=== PATIENT | male | born 1960 | race Caucasian/White ===

== ENCOUNTER 2017-03-22 06:01 | Emergency (ER) | payer MEDICARE, OTHER ==
[~2017-03-22] VITALS: Ht 170.2 cm; Wt 83.0 kg
[~2017-03-22 06:01] MED LIST: ALLO100T PO; CLOP75TA16 PO; DOCU-138 PO; FERR-63 PO; GABA-531 PO; LIP40 PO; METF10002 PO; PANT40TA4 PO; QUIN20TA30 PO; TRAM50TA94 PO; VIAG50 PO
[2017-03-22] MEDS ORDERED: ONDANSETRON HCL 4MG/2ML VIAL IV STA (07:34)
[2017-03-22] MEDS ORDERED: MORPHINE SULFATE 4 MG/ML CPJ (NOT FOR IM USE) IV STA (07:34)
[2017-03-22] MEDS ORDERED: SODIUM CHLORIDE 0.9% 1,000 ML IV ONE (07:34)
[2017-03-22 07:50] LABS: BASOPHILS % 0.6 % (0.0-2.0); EOSINOPHILS % 2.7 % (0.0-5.0); HEMATOCRIT. 36.7 % (42.0-52.0); HEMOGLOBIN. 12.9 g/dL (14.0-18.0); LYMPHOCYTES % 19.9 % (20.0-50.0); MEAN CORPUSCULAR HEMOGLOBIN 31.3 pg (28.0-32.0); MEAN CORPUSCULAR VOLUME 89.1 fL (80.0-94.0); MEAN PLATELET VOLUME 7.3 fl (7.4-10.4); MONOCYTES % 12.1 % (2.0-8.0); NEUTROPHILS % 64.7 % (40.0-76.0); PLATELET 64 x1000/uL (130-400); RED BLOOD CELL COUNT 4.11 mill/uL (4.7-6.1)
[2017-03-22 08:04] LABS: CARBON DIOXIDE 25 mEq/L (21-32); CHLORIDE 106 mEq/L (98-107); ETHANOL BLOOD < 10 mg/dL
[2017-03-22 08:37] LABS: CLARITY URINE CLEAR (CLEAR); COLOR URINE DARK YELLOW (YELLOW); KETONES URINE NEGATIVE (NEGATIVE); LEUKOCYTE ESTERASE URINE NEGATIVE (NEGATIVE); NITRITE URINE NEGATIVE (NEGATIVE); OCCULT BLOOD URINE NEGATIVE (NEGATIVE); PROTEIN URINE NEGATIVE (NEGATIVE); SPECIFIC GRAVITY URINE 1.024 (1.005-1.030)
[2017-03-22] MEDS ORDERED: IOHEXOL-300 100 ML BOTTLE ONE (09:57)
[2017-03-22] MEDS ORDERED: ONDANSETRON HCL 4MG/2ML VIAL IV ONE (11:00)
[2017-03-22] MEDS ORDERED: MORPHINE SULFATE 4 MG/ML CPJ (NOT FOR IM USE) IV ONE (11:00)
[2017-03-22 11:47] VITALS: BP 146/116
== END 2017-03-22 12:25 | disposition home or self-care (01) ==
LOC: ER 06:01
DX: R10.84 Generalized abdominal pain (principal); R51 Headache; R19.7 Diarrhea, unspecified; R11.2 Nausea with vomiting, unspecified; K21.9 Gastro-esophageal reflux disease without esophagitis; I10 Essential (primary) hypertension; E78.00 Pure hypercholesterolemia, unspecified; E11.9 Type 2 diabetes mellitus without complications; Z86.73 Personal history of transient ischemic attack (TIA), and cerebral infarction without residual deficits; Z79.01 Long term (current) use of anticoagulants
CPT/HCPCS: 36415; 74177; 76705; 80053; 81003; 83690; 85025; 96361; 96374; 96375; 96376; 99285; G0482; J2270; J2405; Q9967; J7030

== ENCOUNTER 2018-09-22 01:39 | Emergency (ER) | payer MEDICARE, OTHER ==
[~2018-09-22] VITALS: Ht 165.1 cm; Wt 84.0 kg
[~2018-09-22 01:39] MED LIST changes: -CLOP75TA16 PO; +CLOP75TA4 PO; +METF-416 PO; -METF10002 PO
[2018-09-22 02:49] LABS: HEMOGLOBIN. 12.9 g/dL (14.0-18.0); RED CELL DISTRIBUTION WIDTH 16.8 % (11.6-14.6)
[2018-09-22 02:53] LABS: CHLORIDE 109 mEq/L (98-107)
[2018-09-22 03:06] LABS: EOSINOPHILS % 3.5 % (0.0-5.0); HEMATOCRIT. 34.9 % (42.0-52.0); LYMPHOCYTES % 20.1 % (20.0-50.0); MEAN CORPUSCULAR HEMOGLOBIN 33.5 pg (28.0-32.0); MEAN CORPUSCULAR VOLUME 91.1 fL (80.0-94.0); MEAN PLATELET VOLUME 7.8 fl (7.4-10.4); MONOCYTES % 13.4 % (2.0-8.0); PLATELET 76 x1000/uL (130-400); RED BLOOD CELL COUNT 3.84 mill/uL (4.7-6.1)
[2018-09-22] MEDS ORDERED: ASPIRIN 81MG TABLET PO SCH (03:30)
[2018-09-22] MEDS: MORPHINE SULFATE 4 MG/ML CPJ (NOT FOR IM USE) IV SCH ×2 (03:56→04:53)
[2018-09-22 07:46] VITALS: BP 132/88
== END 2018-09-22 08:00 | disposition short-term general hospital (02) ==
LOC: ER 01:39 → CANBEDREQ 07:06 → ER 08:00
DX: R07.89 Other chest pain (principal); R06.02 Shortness of breath; E11.9 Type 2 diabetes mellitus without complications; E78.00 Pure hypercholesterolemia, unspecified; I10 Essential (primary) hypertension; Z86.73 Personal history of transient ischemic attack (TIA), and cerebral infarction without residual deficits; Z98.890 Other specified postprocedural states; Z79.899 Other long term (current) drug therapy
CPT/HCPCS: 36415; 71045; 80053; 82962; 83880; 84484; 85025; 93005; 96374; 99285; J2270

== ENCOUNTER 2019-02-23 00:51 | Inpatient (IN) | payer MEDICARE, OTHER ==
[~2019-02-23] VITALS: Ht 167.6 cm; Wt 78.9 kg
[~2019-02-23 00:51] MED LIST changes: +METO25TA6 MT
[2019-02-23] MEDS ORDERED: ASPIRIN 81MG TABLET PO ONE (01:30)
[2019-02-23] MEDS: NITROGLYCERIN 0.4MG TABLET SL SL PRN ×2 (01:57→02:09)
[2019-02-23 02:11] LABS: BASOPHILS % 0.7 % (0.0-2.0); EOSINOPHILS % 4.3 % (0.0-5.0); HEMATOCRIT. 36.7 % (42.0-52.0); HEMOGLOBIN. 13.3 g/dL (14.0-18.0); LYMPHOCYTES % 23.9 % (20.0-50.0); MEAN CORPUSCULAR HEMOGLOBIN 33.7 pg (28.0-32.0); MEAN CORPUSCULAR VOLUME 92.6 fL (80.0-94.0); MEAN PLATELET VOLUME 7.9 fl (7.4-10.4); MONOCYTES % 13.1 % (2.0-8.0); PLATELET 78 x1000/uL (130-400); RED BLOOD CELL COUNT 3.96 mill/uL (4.7-6.1); RED CELL DISTRIBUTION WIDTH 13.5 % (11.6-14.6)
[2019-02-23 02:13] LABS: CHLORIDE 108 mEq/L (98-107)
[2019-02-23] MEDS ORDERED: INSULIN REGULAR (HUMULIN R) 300UNITS/3ML IV SCH (03:00)
[2019-02-23] MEDS ORDERED: CALCIUM CHLORIDE 1GM/10ML SYR IV SCH (03:00)
[2019-02-23] MEDS ORDERED: DEXTROSE 50% WATER 50ML SYRINGE IV SCH (03:00)
[2019-02-23] MEDS ORDERED: SODIUM BICARBONATE 8.4% 1 MEQ/ML 50ML SYR IV SCH (03:00)
[2019-02-23] MEDS ORDERED: ZOLPIDEM TARTRATE 5MG TABLET PO PRN (08:15)
[2019-02-23] MEDS ORDERED: ENOXAPARIN 40MG/0.4ML SYR SUBCUT SCH ×2 (08:15→10:00)
[2019-02-23] MEDS ORDERED: NITROGLYCERIN 0.4MG TABLET SL SL PRN (08:15)
[2019-02-23] MEDS ORDERED: MAGNESIUM/ALUMINUM HYDROXIDE/SIMETHICONE 30ML UDC PO PRN (08:15)
[2019-02-23] MEDS ORDERED: ONDANSETRON HCL 4MG/2ML INJ IV PRN (08:15)
[2019-02-23] MEDS ORDERED: IPRATROPIUM/ALBUTEROL 0.5-3(2.5)MG/3ML NEB NEB PRN (08:15)
[2019-02-23] MEDS ORDERED: ACETAMINOPHEN 325MG TABLET PO PRN (08:15)
[2019-02-23] MEDS ORDERED: DEXTROSE 50% WATER 50ML SYRINGE IV PRN (08:15)
[2019-02-23] MEDS ORDERED: GUAIFENESIN 200MG/10ML SUGAR FREE UDC PO PRN (08:15)
[2019-02-23] MEDS ORDERED: CLONIDINE 0.1MG TABLET PO PRN (08:15)
[2019-02-23] MEDS ORDERED: DOCUSATE SODIUM 100MG CAPSULE PO PRN (08:15)
[2019-02-23] MEDS ORDERED: TRAMADOL 50MG TABLET PO PRN (08:15)
[2019-02-23] MEDS ORDERED: FAMOTIDINE 20MG TABLET PO SCH (10:00)
[2019-02-23] MEDS ORDERED: CLOPIDOGREL 75MG TABLET PO SCH (10:00)
[2019-02-23 11:00] VITALS: BP 120/87
[2019-02-23] MEDS: BLOOD SUGAR DIAGNOSTIC STRIP TEST SCH ×3 (12:10→21:57)
[2019-02-23] MEDS: INSULIN LISPRO 100 UNITS/ML SUBCUT SCH ×3 (12:40→21:00)
[2019-02-23 14:12] LABS: T4 FREE 1.26 ng/dL (0.76-1.46)
[2019-02-23] MEDS ORDERED: METO-539 PO (15:19)
[2019-02-23] MEDS ORDERED: METF-414 PO (15:19)
[2019-02-23] MEDS ORDERED: LACT10SO6 PO (15:24)
[2019-02-23] MEDS ORDERED: METO-293 MT (15:24)
[2019-02-23] MEDS ORDERED: TRAZ-251 MT (15:24)
[2019-02-23] MEDS ORDERED: OXYC-662 MT (15:24)
[2019-02-23 15:36] LABS: CREATINE KINASE 74 IU/L (39-308)
[2019-02-23 15:37] LABS: CREATINE KINASE MB FRACTION < 1.0 ng/mL (0.5-3.6)
[2019-02-23 16:00] VITALS: BP 125/83
[2019-02-23] MEDS: LACTULOSE 20G/30ML UDC PO SCH ×2 (16:59→22:00)
[2019-02-23] MEDS: PANTOPRAZOLE SODIUM 40 MG/VIAL IV SCH (16:59)
[2019-02-23] MEDS: DOCUSATE SODIUM 250MG CAPSULE PO SCH (17:00)
[2019-02-23 20:00] VITALS: BP 115/80
[2019-02-24] VITALS: BP 127/70
[2019-02-24 00:40] LABS: CREATINE KINASE 71 IU/L (39-308)
[2019-02-24 00:41] LABS: CREATINE KINASE MB FRACTION < 1.0 ng/mL (0.5-3.6)
[2019-02-24 04:00] VITALS: BP 127/79
[2019-02-24] MEDS: BLOOD SUGAR DIAGNOSTIC STRIP TEST SCH ×4 (06:54→21:00)
[2019-02-24] MEDS: LACTULOSE 20G/30ML UDC PO SCH ×3 (06:54→21:01)
[2019-02-24] MEDS: INSULIN LISPRO 100 UNITS/ML SUBCUT SCH ×4 (06:57→21:00)
[2019-02-24 07:11] LABS: CHLORIDE 110 mEq/L (98-107)
[2019-02-24 07:57] LABS: BASOPHILS % 0.9 % (0.0-2.0); EOSINOPHILS % 4.2 % (0.0-5.0); HEMATOCRIT. 33.5 % (42.0-52.0); HEMOGLOBIN. 12.2 g/dL (14.0-18.0); LYMPHOCYTES % 27.4 % (20.0-50.0); MEAN CORPUSCULAR HEMOGLOBIN 33.7 pg (28.0-32.0); MEAN CORPUSCULAR VOLUME 92.6 fL (80.0-94.0); MEAN PLATELET VOLUME 8.1 fl (7.4-10.4); MONOCYTES % 13.1 % (2.0-8.0); NEUTROPHILS % 54.4 % (40.0-76.0); PLATELET 65 x1000/uL (130-400); RED BLOOD CELL COUNT 3.62 mill/uL (4.7-6.1); RED CELL DISTRIBUTION WIDTH 13.6 % (11.6-14.6)
[2019-02-24 08:00] VITALS: BP 131/88
[2019-02-24] MEDS: PANTOPRAZOLE SODIUM 40 MG/VIAL IV SCH (08:45)
[2019-02-24] MEDS: DOCUSATE SODIUM 250MG CAPSULE PO SCH ×2 (08:45→17:00)
[2019-02-24 12:00] VITALS: BP 122/78
[2019-02-24 16:00] VITALS: BP 109/77
[2019-02-24 20:00] VITALS: BP 126/69
[2019-02-24] MEDS: DILTIAZEM HCL 30MG TABLET PO SCH (21:26)
[2019-02-25] VITALS: BP 97/59
[2019-02-25 04:00] VITALS: BP 105/63
[2019-02-25] MEDS: DILTIAZEM HCL 30MG TABLET PO SCH ×3 (05:46→11:50)
[2019-02-25] MEDS: LACTULOSE 20G/30ML UDC PO SCH (06:00)
[2019-02-25] MEDS: BLOOD SUGAR DIAGNOSTIC STRIP TEST SCH ×2 (06:20→11:23)
[2019-02-25] MEDS: INSULIN LISPRO 100 UNITS/ML SUBCUT SCH ×2 (06:20→11:50)
[2019-02-25 07:40] LABS: CHLORIDE 109 mEq/L (98-107)
[2019-02-25 08:00] VITALS: BP 117/79
[2019-02-25 08:46] LABS: HEMOGLOBIN. 12.1 g/dL (14.0-18.0); MEAN CORPUSCULAR HEMOGLOBIN 33.7 pg (28.0-32.0); MEAN CORPUSCULAR VOLUME 92.2 fL (80.0-94.0); RED BLOOD CELL COUNT 3.58 mill/uL (4.7-6.1); RED CELL DISTRIBUTION WIDTH 13.7 % (11.6-14.6)
[2019-02-25 08:50] LABS: MEAN PLATELET VOLUME 8.2 fl (7.4-10.4); PLATELET 68 x1000/uL (130-400)
[2019-02-25] MEDS: DOCUSATE SODIUM 250MG CAPSULE PO SCH (08:55)
[2019-02-25] MEDS: PANTOPRAZOLE SODIUM 40 MG/VIAL IV SCH (08:55)
[2019-02-25 11:01] VITALS: BP 119/75
[2019-02-25 11:43] VITALS: BP 119/75
[2019-02-25 15:19] LABS: PLATELET ESTIMATE DECREASED
== END 2019-02-25 12:18 | disposition home or self-care (01) | DRG 392 ==
LOC: ER 00:51 → 8WST 03:03 → ENRESERV 07:19 → SUPCPDRO 08:04
PROVIDERS: ADMIT Internal Medicine; ATTEND Internal Medicine
DX: K29.70 Gastritis, unspecified, without bleeding (principal); I69.354 Hemiplegia and hemiparesis following cerebral infarction affecting left non-dominant side; D63.8 Anemia in other chronic diseases classified elsewhere; K74.60 Unspecified cirrhosis of liver; I25.10 Atherosclerotic heart disease of native coronary artery without angina pectoris; E78.00 Pure hypercholesterolemia, unspecified; E11.9 Type 2 diabetes mellitus without complications; M10.9 Gout, unspecified; E66.9 Obesity, unspecified; E87.5 Hyperkalemia; I86.8 Varicose veins of other specified sites; E78.5 Hyperlipidemia, unspecified; I10 Essential (primary) hypertension; K76.0 Fatty (change of) liver, not elsewhere classified; Z79.4 Long term (current) use of insulin; Z82.49 Family history of ischemic heart disease and other diseases of the circulatory system; Z87.11 Personal history of peptic ulcer disease; Z79.899 Other long term (current) drug therapy; Z68.28 Body mass index [BMI] 28.0-28.9, adult
CPT/HCPCS: 36415; 71045; 80061; 82140; 82270; 82550; 82553; 82962; 83036; 83880; 84439; 84443; 84484; 85379; 93005; 93306; 93970; 96374; 96375; 99285; C9113; J1815; J3490

== ENCOUNTER 2019-06-15 20:07 | Inpatient (IN) | payer MEDICARE, OTHER ==
[~2019-06-15] VITALS: Ht 165.1 cm; Wt 81.2 kg
[~2019-06-15 20:07] MED LIST changes: -CLOP75TA4 PO; -DOCU-138 PO; -FERR-63 PO; -GABA-531 PO; +LACT10SO6 PO; -LIP40 PO; +METF-414 PO; -METF-416 PO; +METO-293 MT; +METO-539 PO; -METO25TA6 MT; +OXYC-662 MT; -TRAM50TA94 PO; +TRAZ-251 MT; -VIAG50 PO
[2019-06-15] MEDS ORDERED: MORPHINE SULFATE 4 MG/ML CPJ (NOT FOR IM USE) IV STA (20:39)
[2019-06-15] MEDS ORDERED: ONDANSETRON HCL 4MG/2ML INJ IV STA (20:39)
[2019-06-15] MEDS ORDERED: ASPIRIN 81MG TABLET PO ONE (20:45)
[2019-06-15] MEDS ORDERED: NITROGLYCERIN OINT 1GM/INCH UDPKT TD ONE (20:45)
[2019-06-15 21:34] LABS: CHLORIDE 105 mEq/L (98-107)
[2019-06-15 21:38] LABS: ETHANOL BLOOD < 10 mg/dL
[2019-06-15 21:54] LABS: BASOPHILS % 0.5 % (0.0-2.0); EOSINOPHILS % 2.7 % (0.0-5.0); HEMATOCRIT. 36.3 % (42.0-52.0); HEMOGLOBIN. 13.1 g/dL (14.0-18.0); LYMPHOCYTES % 21.5 % (20.0-50.0); MEAN CORPUSCULAR VOLUME 91.8 fL (80.0-94.0); MEAN PLATELET VOLUME 8.3 fl (7.4-10.4); MONOCYTES % 13.3 % (2.0-8.0); PLATELET 72 x1000/uL (130-400); RED BLOOD CELL COUNT 3.96 mill/uL (4.7-6.1); RED CELL DISTRIBUTION WIDTH 14.3 % (11.6-14.6)
[2019-06-15 22:43] LABS: *AMPHETAMINES SCREEN URINE NEGATIVE (NEGATIVE); *BARBITURATES SCREEN URINE NEGATIVE (NEGATIVE); *BENZODIAZEPINES SCREEN URINE NEGATIVE (NEGATIVE)
[2019-06-15 22:44] LABS: *COCAINE SCREEN URINE NEGATIVE (NEGATIVE); CANNABINOID URINE SCREEN NEGATIVE (NEGATIVE); METHADONE URINE SCREEN NEGATIVE (NEGATIVE); OPIATES URINE SCREEN NEGATIVE (NEGATIVE); PHENCYCLIDINE URINE SCREEN NEGATIVE (NEGATIVE)
[2019-06-16] MEDS: MORPHINE SULFATE 2 MG/ML CPJ (NOT FOR IM USE) IV PRN ×3 (04:49→16:46)
[2019-06-16] MEDS ORDERED: ACETAMINOPHEN 325MG TABLET PO PRN (08:45)
[2019-06-16] MEDS ORDERED: ONDANSETRON HCL 4MG/2ML INJ IV PRN (08:45)
[2019-06-16] MEDS ORDERED: DEXTROSE 50% WATER 50ML SYRINGE IV PRN (08:45)
[2019-06-16 09:00] VITALS: BP 100/65
[2019-06-16] MEDS: BLOOD SUGAR DIAGNOSTIC STRIP TEST SCH ×4 (09:35→21:16)
[2019-06-16] MEDS: ASPIRIN 81MG TABLET PO SCH (10:13)
[2019-06-16] MEDS: INSULIN LISPRO 100 UNITS/ML SUBCUT SCH ×3 (13:01→21:20)
[2019-06-16 16:00] VITALS: BP 103/67
[2019-06-16 20:00] VITALS: BP 114/75
[2019-06-17] VITALS: BP 104/63
[2019-06-17 04:00] VITALS: BP 119/85
[2019-06-17] MEDS: BLOOD SUGAR DIAGNOSTIC STRIP TEST SCH ×2 (07:40→13:24)
[2019-06-17 08:00] VITALS: BP 103/69
[2019-06-17] MEDS ORDERED: REGADENOSON 0.4 MG/5 ML IV ONE ×2 (08:00→10:01)
[2019-06-17 08:01] LABS: HEMATOCRIT. 30.5 % (42.0-52.0); HEMOGLOBIN. 11.2 g/dL (14.0-18.0); MEAN CORPUSCULAR HEMOGLOBIN 33.5 pg (28.0-32.0); MEAN CORPUSCULAR VOLUME 91.6 fL (80.0-94.0); MEAN PLATELET VOLUME 8.4 fl (7.4-10.4); PLATELET 55 x1000/uL (130-400); RED BLOOD CELL COUNT 3.33 mill/uL (4.7-6.1); RED CELL DISTRIBUTION WIDTH 14.4 % (11.6-14.6)
[2019-06-17] MEDS: INSULIN LISPRO 100 UNITS/ML SUBCUT SCH ×2 (08:10→13:45)
[2019-06-17] MEDS: ASPIRIN 81MG TABLET PO SCH (09:00)
[2019-06-17 12:00] VITALS: BP 101/62
[2019-06-17 12:27] LABS: T4 FREE 1.62 ng/dL (0.76-1.46)
[2019-06-17 13:53] LABS: CHLORIDE 105 mEq/L (98-107)
[2019-06-17 14:57] LABS: CREATINE KINASE 55 IU/L (39-308)
[2019-06-17 14:59] LABS: CREATINE KINASE MB FRACTION < 1.0 ng/mL (0.5-3.6)
[2019-06-17 15:23] VITALS: BP 101/62
[2019-06-17 16:00] VITALS: BP 103/68
[2019-06-17 16:33] LABS: PLATELET ESTIMATE DECREASED
[2019-06-17] MEDS ORDERED: FUROSEMIDE 20MG/2ML VIAL IVP ONE (17:30)
[2019-06-17] MEDS ORDERED: LACTULOSE 20G/30ML UDC PO ONE (17:30)
== END 2019-06-17 17:34 | disposition home or self-care (01) | DRG 440 ==
LOC: ER 20:07 → 7WST 21:16 → EDBEDREQTM 21:18 → EDBEDREQ 21:18 → ENRESERV 06-16 07:28
PROVIDERS: ADMIT Internal Medicine; ATTEND Internal Medicine
DX: K85.90 Acute pancreatitis without necrosis or infection, unspecified (principal); E11.9 Type 2 diabetes mellitus without complications; E78.5 Hyperlipidemia, unspecified; I10 Essential (primary) hypertension; K74.60 Unspecified cirrhosis of liver; Z86.73 Personal history of transient ischemic attack (TIA), and cerebral infarction without residual deficits; E78.00 Pure hypercholesterolemia, unspecified; Z82.49 Family history of ischemic heart disease and other diseases of the circulatory system
CPT/HCPCS: 36415; 71045; 76700; 78452; 80048; 80053; 80061; 80305; 80320; 82550; 82553; 82962; 83036; 83880; 84439; 84443; 84484; 85025; 85379; 93005; 93017; 93306; 93970; 99291; A9500; J1815; J2270; J2405; J2785; G0480

== ENCOUNTER 2019-08-13 08:36 | Emergency (ER) | payer MEDICARE, OTHER ==
[~2019-08-13] VITALS: Ht 162.6 cm; Wt 75.0 kg
[~2019-08-13 08:36] MED LIST changes: -METO-539 PO
[2019-08-13 09:39] LABS: BASOPHILS % 0.6 % (0.0-2.0); CHLORIDE 109 mEq/L (98-107); EOSINOPHILS % 4.3 % (0.0-5.0); HEMATOCRIT. 35.1 % (42.0-52.0); HEMOGLOBIN. 12.7 g/dL (14.0-18.0); INR 1.2; LYMPHOCYTES % 21.3 % (20.0-50.0); MEAN CORPUSCULAR HEMOGLOBIN 32.2 pg (28.0-32.0); MEAN CORPUSCULAR VOLUME 88.9 fL (80.0-94.0); MEAN PLATELET VOLUME 7.5 fl (7.4-10.4); MONOCYTES % 13.1 % (2.0-8.0); NEUTROPHILS % 60.7 % (40.0-76.0); PLATELET 93 x1000/uL (130-400); PROTHROMBIN TIME 13.4 sec (9.6-11.0); RED BLOOD CELL COUNT 3.95 mill/uL (4.7-6.1); RED CELL DISTRIBUTION WIDTH 14.5 % (11.6-14.6)
[2019-08-13 09:56] LABS: CLARITY URINE CLEAR (CLEAR); COLOR URINE YELLOW (YELLOW); KETONES URINE NEGATIVE (NEGATIVE); LEUKOCYTE ESTERASE URINE NEGATIVE (NEGATIVE); NITRITE URINE NEGATIVE (NEGATIVE); OCCULT BLOOD URINE NEGATIVE (NEGATIVE); PH URINE 5.5 (4.5-8.0); PROTEIN URINE NEGATIVE (NEGATIVE); SPECIFIC GRAVITY URINE 1.008 (1.005-1.030); UROBILINOGEN URINE 0.2 E.U./dL (0.2-1.0)
[2019-08-13 12:30] VITALS: BP 131/85
== END 2019-08-13 12:35 | disposition home or self-care (01) ==
LOC: ER 08:36
DX: R04.0 Epistaxis (principal); E11.9 Type 2 diabetes mellitus without complications; I10 Essential (primary) hypertension; K21.9 Gastro-esophageal reflux disease without esophagitis; E78.00 Pure hypercholesterolemia, unspecified; M10.9 Gout, unspecified; K74.60 Unspecified cirrhosis of liver; Z86.73 Personal history of transient ischemic attack (TIA), and cerebral infarction without residual deficits
CPT/HCPCS: 36415; 71045; 80053; 81003; 85025; 86850; 86900; 99284

== ENCOUNTER 2020-01-23 12:14 | Inpatient (IN) | payer MEDICARE, OTHER ==
[~2020-01-23] VITALS: Ht 165.1 cm; Wt 75.8 kg
[2020-01-23 14:12] LABS: CLARITY URINE CLEAR (CLEAR); COLOR URINE YELLOW (YELLOW); KETONES URINE NEGATIVE (NEGATIVE); LEUKOCYTE ESTERASE URINE NEGATIVE (NEGATIVE); NITRITE URINE NEGATIVE (NEGATIVE); OCCULT BLOOD URINE NEGATIVE (NEGATIVE); PROTEIN URINE NEGATIVE (NEGATIVE); SPECIFIC GRAVITY URINE 1.013 (1.005-1.030); UROBILINOGEN URINE 0.2 E.U./dL (0.2-1.0)
[2020-01-23 14:13] LABS: HEMOGLOBIN. 11.1 g/dL (14.0-18.0); MEAN CORPUSCULAR HEMOGLOBIN 31.2 pg (28.0-32.0); PLATELET 56 x1000/uL (130-400); RED BLOOD CELL COUNT 3.55 mill/uL (4.7-6.1); RED CELL DISTRIBUTION WIDTH 20.3 % (11.6-14.6)
[2020-01-23 14:21] LABS: CHLORIDE 111 mEq/L (98-107)
[2020-01-23 14:26] LABS: ETHANOL BLOOD < 10 mg/dL
[2020-01-23 14:40] LABS: *AMPHETAMINES SCREEN URINE NEGATIVE (NEGATIVE); *BARBITURATES SCREEN URINE NEGATIVE (NEGATIVE); *BENZODIAZEPINES SCREEN URINE NEGATIVE (NEGATIVE); *COCAINE SCREEN URINE NEGATIVE (NEGATIVE); METHADONE URINE SCREEN NEGATIVE (NEGATIVE); OPIATES URINE SCREEN NEGATIVE (NEGATIVE)
[2020-01-23 14:41] LABS: CANNABINOID URINE SCREEN NEGATIVE (NEGATIVE); PHENCYCLIDINE URINE SCREEN NEGATIVE (NEGATIVE)
[2020-01-23 15:09] LABS: PLATELET ESTIMATE DECREASED
[2020-01-23] MEDS ORDERED: SODIUM CHLORIDE 0.9% 1000ML BAG (SEPSIS BOLUS) IV ONE (15:15)
[2020-01-23] MEDS ORDERED: PIPERACILLIN/TAZ 3.375G PREMIX 50 ML IV ONE (15:15)
[2020-01-23] MEDS ORDERED: VANCOMYCIN 1 G PREMIX 200 ML IV ONE (15:15)
[2020-01-23] MEDS ORDERED: HYDROCODONE/ACETAMINOPHEN 5/325MG TABLET PO PRN ×2 (23:15→23:45)
[2020-01-23] MEDS ORDERED: ACETAMINOPHEN 325MG TABLET PO PRN (23:45)
[2020-01-23] MEDS ORDERED: IPRATROPIUM/ALBUTEROL 0.5-3(2.5)MG/3ML NEB NEB PRN (23:45)
[2020-01-23] MEDS ORDERED: CLONIDINE 0.1MG TABLET PO PRN (23:45)
[2020-01-23] MEDS ORDERED: DOCUSATE SODIUM 100MG CAPSULE PO PRN (23:45)
[2020-01-23] MEDS ORDERED: ONDANSETRON HCL 4MG/2ML INJ IV PRN (23:45)
[2020-01-24] MEDS ORDERED: PIPERACILLIN/TAZ 3.375G PREMIX 50 ML IV SCH
[2020-01-24] MEDS ORDERED: DEXTROSE 50% WATER 50ML SYRINGE IV PRN (02:15)
[2020-01-24 02:18] VITALS: BP 131/72
[2020-01-24] MEDS ORDERED: TAMS-11 MT (02:44)
[2020-01-24] MEDS ORDERED: RIFA550T PO (02:51)
[2020-01-24] MEDS ORDERED: GABA-529 PO (02:51)
[2020-01-24] MEDS ORDERED: PRAV40TA58 PO (02:51)
[2020-01-24] MEDS ORDERED: CHOL4PAC5 PO (03:05)
[2020-01-24] MEDS ORDERED: METO-539 PO (03:08)
[2020-01-24] MEDS ORDERED: MIRT-91 PO (03:09)
[2020-01-24 04:00] VITALS: BP 124/78
[2020-01-24] MEDS ORDERED: VANCOMYCIN 750 MG PREMIX 150 ML IV SCH ×2 (04:00→05:00)
[2020-01-24] MEDS: PIPERACILLIN/TAZOBACTAM 3.375 G in DEXT 5% WATER 100 ML IV SCH ×3 (04:41→21:45)
[2020-01-24] MEDS: BLOOD SUGAR DIAGNOSTIC STRIP TEST SCH ×4 (05:52→21:03)
[2020-01-24 06:35] LABS: HEMATOCRIT. 29.3 % (42.0-52.0); MEAN CORPUSCULAR HEMOGLOBIN 30.9 pg (28.0-32.0); MEAN CORPUSCULAR VOLUME 90.4 fL (80.0-94.0); MEAN PLATELET VOLUME 7.8 fl (7.4-10.4); RED BLOOD CELL COUNT 3.24 mill/uL (4.7-6.1); RED CELL DISTRIBUTION WIDTH 20.7 % (11.6-14.6)
[2020-01-24] MEDS: INSULIN LISPRO 100 UNITS/ML SUBCUT SCH ×4 (06:42→21:00)
[2020-01-24 06:46] LABS: CHLORIDE 113 mEq/L (98-107)
[2020-01-24 06:55] LABS: CREATINE KINASE MB FRACTION < 1.0 ng/mL (0.5-3.6); LDL CHOLESTEROL 89 mg/dL (5-100)
[2020-01-24 06:56] LABS: CREATINE KINASE 62 IU/L (39-308)
[2020-01-24 06:57] LABS: HDL CHOLESTEROL 44 mg/dL (40-59)
[2020-01-24 07:55] LABS: PLATELET 41 x1000/uL (130-400)
[2020-01-24 08:00] VITALS: BP 110/73
[2020-01-24] MEDS ORDERED: METOCLOPRAMIDE HCL 10MG TABLET PO PRN (11:45)
[2020-01-24 12:00] VITALS: BP 111/68
[2020-01-24] MEDS ORDERED: MAGNESIUM 2 G PREMIX 50 ML IV NR (13:00)
[2020-01-24] MEDS: METOPROLOL TARTRATE 50MG TABLET PO SCH ×2 (13:34→21:47)
[2020-01-24] MEDS: GABAPENTIN 100MG CAPSULE PO SCH ×2 (13:34→17:07)
[2020-01-24] MEDS: LACTULOSE 20G/30ML UDC PO SCH ×2 (13:34→21:48)
[2020-01-24] MEDS: CHOLESTYRAMINE/SUCROSE 4G POWDER PACKET PO SCH ×2 (13:35→17:07)
[2020-01-24] MEDS ORDERED: LACTULOSE 20G/30ML UDC PO SCH (14:00)
[2020-01-24 16:00] VITALS: BP 118/71
[2020-01-24 16:46] LABS: TOTAL IRON BINDING CAPACITY 226 ug/dL (250-450)
[2020-01-24 16:49] LABS: CREATINE KINASE 66 IU/L (39-308)
[2020-01-24 16:51] LABS: CREATINE KINASE MB FRACTION < 1.0 ng/mL (0.5-3.6)
[2020-01-24] MEDS: RIFAXIMIN 550 MG TABLET PO SCH (17:07)
[2020-01-24 17:24] LABS: FOLIC ACID (FOLATE) SERUM >20 ng/mL ng/mL (>5.38)
[2020-01-24 17:45] LABS: VITAMIN B12 SERUM > 2000.0 pg/mL (211-911)
[2020-01-24 17:59] LABS: FERRITIN 430 ng/mL (22-322)
[2020-01-24 18:54] LABS: PLATELET ESTIMATE MARKEDLY DECREASED
[2020-01-24 20:00] VITALS: BP 117/75
[2020-01-24] MEDS: TRAZODONE HCL 50MG TABLET PO SCH ×2 (21:00→21:46)
[2020-01-24] MEDS: MIRTAZAPINE 15MG TABLET PO SCH ×2 (21:00→21:46)
[2020-01-24] MEDS: VANCOMYCIN 750 MG PREMIX 150 ML IV SCH (22:48)
[2020-01-25] VITALS: BP 109/75
[2020-01-25 04:00] VITALS: BP 117/73
[2020-01-25] MEDS: PIPERACILLIN/TAZOBACTAM 3.375 G in DEXT 5% WATER 100 ML IV SCH ×2 (04:48→11:55)
[2020-01-25] MEDS: LACTULOSE 20G/30ML UDC PO SCH (06:00)
[2020-01-25] MEDS: INSULIN LISPRO 100 UNITS/ML SUBCUT SCH ×2 (06:23→11:56)
[2020-01-25] MEDS: BLOOD SUGAR DIAGNOSTIC STRIP TEST SCH ×2 (06:23→11:53)
[2020-01-25] MEDS ORDERED: PANTOPRAZOLE 40MG DR TABLET PO SCH (06:45)
[2020-01-25 08:00] VITALS: BP 103/67
[2020-01-25] MEDS: TAMSULOSIN HCL 0.4MG SR CAPSULE PO SCH ×2 (09:00→09:10)
[2020-01-25] MEDS: CHOLESTYRAMINE/SUCROSE 4G POWDER PACKET PO SCH ×3 (09:00→12:34)
[2020-01-25] MEDS: METOPROLOL TARTRATE 50MG TABLET PO SCH (09:00)
[2020-01-25] MEDS ORDERED: ALLOPURINOL 100 MG TABLET PO SCH (09:00)
[2020-01-25] MEDS: RIFAXIMIN 550 MG TABLET PO SCH (09:10)
[2020-01-25] MEDS: GABAPENTIN 100MG CAPSULE PO SCH ×2 (09:10→12:34)
[2020-01-25] MEDS: VANCOMYCIN 750 MG PREMIX 150 ML IV SCH (09:11)
[2020-01-25 12:00] VITALS: BP 105/64
[2020-01-25 12:52] VITALS: BP 105/64
== END 2020-01-25 14:15 | disposition home or self-care (01) | DRG 682 ==
LOC: ER 12:14 → 5WST 18:35 → EDBEDREQTM 22:06 → EDBEDREQSVC 22:06 → ENRESERV 22:35 → CANRESERV 22:35 → EDBEDREQTM 01-24 00:19 → EDBEDREQSVC 01-24 00:19 → ENRESERV 01-24 00:33
PROVIDERS: ADMIT Internal Medicine; ATTEND Internal Medicine
DX: N17.9 Acute kidney failure, unspecified (principal); K85.90 Acute pancreatitis without necrosis or infection, unspecified; E87.2 Acidosis; D61.818 Other pancytopenia; I50.32 Chronic diastolic (congestive) heart failure; K76.6 Portal hypertension; E46 Unspecified protein-calorie malnutrition; E44.1 Mild protein-calorie malnutrition; K86.1 Other chronic pancreatitis; K74.60 Unspecified cirrhosis of liver; E78.1 Pure hyperglyceridemia; E83.42 Hypomagnesemia; E78.5 Hyperlipidemia, unspecified; E11.9 Type 2 diabetes mellitus without complications; M10.9 Gout, unspecified; K72.90 Hepatic failure, unspecified without coma; D63.8 Anemia in other chronic diseases classified elsewhere; I11.0 Hypertensive heart disease with heart failure; Z79.899 Other long term (current) drug therapy; Z79.84 Long term (current) use of oral hypoglycemic drugs; Z68.27 Body mass index [BMI] 27.0-27.9, adult; D72.825 Bandemia
CPT/HCPCS: 36415; 71045; 76700; 80048; 80053; 80061; 80202; 80305; 80320; 81003; 82140; 82247; 82550; 82553; 82607; 82728; 82746; 82962; 83036; 83540; 83550; 83605; 83735; 83880; 84075; 84145; 84443; 84450; 84460; 84484; 85025; 93005; 93970; 99285; J1815; J2543; J3370; J3475; J7030; J7060; G0480